=== PATIENT | female | born 1965 | race Hispanic/Latino ===

== ENCOUNTER 2021-03-05 13:22 | Inpatient (IN) | payer MEDICARE ==
[~2021-03-05] VITALS: Ht 160 cm; Wt 200.5 kg
[2021-03-05 14:31] LABS: APPEARANCE,URINE Clear (CLEAR); BILIRUBIN,URINE Negative (NEGATIVE); COLOR,URINE Yellow (YELLOW); GLUCOSE, URINE (UA) Negative (NEGATIVE); KETONES,URINE Negative (NEGATIVE); LEUKOCYTE ESTERASE ,URINE Large (NEGATIVE); NITRATE,URINE Positive (NEGATIVE); OCCULT BLOOD,URINE Large (NEGATIVE); PH,URINE 6.5 (5.0-8.0); PROTEIN,URINE POS 1+ mg/dL (NEGATIVE); UROBILINOGEN,URINE 0.2 mg/dL (0.2-1.0)
[2021-03-05 14:46] LABS: BACTERIA,URINE Moderate /HPF (None Seen); MUCUS,URINE Few LPF (None Seen); SQUAMOUS EPITHELIAL CELL,UR Few /HPF (0-2)
[2021-03-05 14:51] LABS: BASOPHILS % (AUTO) 0.7 % (0.0-5.0); EOSINOPHILS % (AUTO) 2.1 % (0.0-8.0); HEMATOCRIT 28.6 % (36-48); LYMPHOCYTES % (AUTO) 16.9 % (21.0-51.0); MEAN CORPUSCULAR HEMOGLOBIN 29.2 pg (27.0-33.0); MEAN CORPUSCULAR HGB CONC 30.4 g/dL (32.0-36.0); MONOCYTES % (AUTO) 4.1 % (3.0-13.0); NEUTROPHILS % (AUTO) 75.9 % (40.0-77.0); PLATELET COUNT (AUTO) 273 K/uL (130-400); RED BLOOD CELL COUNT(AUTO) 2.98 MIL/uL (4.00-5.50); RED CELL DISTRIBUTION WIDTH 15.4 % (11.0-15.5); WHITE BLOOD COUNT (AUTO) 11.7 K/uL (4.8-10.8)
[2021-03-05 15:05] LABS: ALBUMIN 2.9 g/dL (3.5-5.0); BILIRUBIN,TOTAL 0.1 mg/dL (0.2-1.0); CREATININE 1.8 mg/dL (0.5-1.5); TOTAL PROTEIN, SERUM 7.8 g/dL (6.0-8.3)
[2021-03-05 15:10] LABS: POTASSIUM 6.8 mmol/L (3.5-5.1)
[2021-03-05] MEDS ORDERED: LEVOFLOXACIN 500 MG/D5W 100 ML 100 ML IV SCH (15:30)
[2021-03-05] MEDS ORDERED: SODIUM BICARB 8.4% 50ML SYRINGE IVP ONE (17:00)
[2021-03-05] MEDS ORDERED: DEXTROSE 50%-WATER 25 GM/50 ML VIAL IV ONE (17:00)
[2021-03-05] MEDS ORDERED: INSULIN HUMULIN R 100 UNIT/ML 3ML IV ONE (17:00)
[2021-03-05] MEDS ORDERED: CALCIUM GLUC 1GM 1 GM in 0.9%NACL 100ML 100 ML IV ONE (17:00)
[2021-03-05] MEDS ORDERED: DEXTROSE 50%-WATER 50 ML DISP.SYRIN IV ONE (17:00)
[2021-03-05] MEDS ORDERED: SODIUM BICARB 50MEQ 50ML VIAL 50 ML ONE (17:12)
[2021-03-05] MEDS ORDERED: 0.9%NACL 100ML 100 ML ONE (17:14)
[2021-03-05] MEDS ORDERED: CALCIUM GLUC 1GM/10ML VIAL IV ONE (17:14)
[2021-03-05 20:54] LABS: ABG BASE EXCESS -13.5 mmol/L (-2.0-3.0); ABG OXYGEN SATURATION 96.7 % (95.0-99.0); ABG PCO2 33 mmHg (32-45)
[2021-03-05] MEDS ORDERED: ONDANSETRON 4MG INJ IV PRN (21:30)
[2021-03-05] MEDS ORDERED: LACTATED RINGERS 1000ML 1,047 ML IV ONE (21:30)
[2021-03-05] MEDS ORDERED: ACETAMINOPHEN 325 MG TAB PO PRN (21:30)
[2021-03-05] MEDS ORDERED: ALBUTEROL INHALER 90MCG/INH IH PRN (22:00)
[2021-03-05] MEDS ORDERED: KAYEXALATE 15GM/60ML PO NR (22:00)
[2021-03-05] MEDS ORDERED: 0.9%NACL 50ML 50 ML IV ONE (22:07)
[2021-03-05] MEDS: ZOSYN 3.375GM+NS 50ML 50 ML IV SCH (23:19)
[2021-03-06 01:35] LABS: CREATININE 1.6 mg/dL (0.5-1.5); POTASSIUM 5.8 mmol/L (3.5-5.1)
[2021-03-06 05:31] LABS: BASOPHILS % (AUTO) 0.8 % (0.0-5.0); EOSINOPHILS % (AUTO) 3.9 % (0.0-8.0); HEMATOCRIT 29.7 % (36-48); LYMPHOCYTES % (AUTO) 21.7 % (21.0-51.0); MEAN CORPUSCULAR HEMOGLOBIN 28.2 pg (27.0-33.0); MEAN CORPUSCULAR HGB CONC 29.6 g/dL (32.0-36.0); MEAN CORPUSCULAR VOLUME 95.2 fL (79-99); MONOCYTES % (AUTO) 5.8 % (3.0-13.0); NEUTROPHILS % (AUTO) 67.4 % (40.0-77.0); PLATELET COUNT (AUTO) 269 K/uL (130-400); RED BLOOD CELL COUNT(AUTO) 3.12 MIL/uL (4.00-5.50); RED CELL DISTRIBUTION WIDTH 15.3 % (11.0-15.5); WHITE BLOOD COUNT (AUTO) 8.6 K/uL (4.8-10.8)
[2021-03-06 05:45] LABS: HEMOGLOBIN A1C 5.9 % (4.0-6.0)
[2021-03-06 06:02] LABS: CREATININE 1.7 mg/dL (0.5-1.5); MAGNESIUM 1.5 mg/dL (1.80-2.40); PHOSPHORUS 4.2 mg/dL (2.5-4.9); POTASSIUM 5.9 mmol/L (3.5-5.1); THYROID STIMULATING HORMONE 3.75 uIU/mL (0.36-3.74)
[2021-03-06] MEDS: LEVOTHYROXINE 100 MCG TABLET PO SCH (06:18)
[2021-03-06] MEDS ORDERED: SODIUM ZIRCONIUM CYCLOSILICATE 5 GM POWD.PACK PO SCH (07:00)
[2021-03-06] MEDS ORDERED: MAGNESIUM 2GM PREMIX 50ML 50 ML IV SCH (07:00)
[2021-03-06] MEDS: INSULIN HUMULIN R 100 UNIT/ML 3ML SQ SCH ×4 (07:30→21:00)
[2021-03-06] MEDS ORDERED: SODIUM BICARBONATE 650 MG TAB PO PRN (09:00)
[2021-03-06] MEDS ORDERED: NA ZIRCON CYCLOSIL(LOKELMA 10GM) PO SCH ×2 (09:00→19:00)
[2021-03-06] MEDS: HEPARIN 5,000 UNIT VIAL SQ SCH ×2 (09:45→22:04)
[2021-03-06] MEDS: SODIUM BICARBONATE 650 MG TAB PO SCH ×2 (09:45→21:59)
[2021-03-06] MEDS: ZOSYN 3.375GM+NS 50ML 50 ML IV SCH ×2 (09:45→21:59)
[2021-03-06] MEDS ORDERED: 0.9%NACL 100ML 100 ML ONE (10:30)
[2021-03-06] MEDS: FAMOTIDINE 20MG TAB PO SCH (10:59)
[2021-03-06 15:09] LABS: CREATININE 1.4 mg/dL (0.5-1.5)
[2021-03-06 17:53] LABS: CREATININE 1.6 mg/dL (0.5-1.5); POTASSIUM 5.4 mmol/L (3.5-5.1)
[2021-03-06 18:53] VITALS: BP 112/61
[2021-03-06] MEDS: ATORVASTATIN 20 MG TABLET PO SCH (21:59)
[2021-03-07] VITALS: BP 105/60
[2021-03-07 03:55] LABS: BASOPHILS % (AUTO) 0.6 % (0.0-5.0); EOSINOPHILS % (AUTO) 2.2 % (0.0-8.0); HEMATOCRIT 27.4 % (36-48); LYMPHOCYTES % (AUTO) 17.9 % (21.0-51.0); MEAN CORPUSCULAR HEMOGLOBIN 28.7 pg (27.0-33.0); MEAN CORPUSCULAR HGB CONC 30.3 g/dL (32.0-36.0); MEAN CORPUSCULAR VOLUME 94.8 fL (79-99); NEUTROPHILS % (AUTO) 72.9 % (40.0-77.0); PLATELET COUNT (AUTO) 254 K/uL (130-400); RED BLOOD CELL COUNT(AUTO) 2.89 MIL/uL (4.00-5.50); RED CELL DISTRIBUTION WIDTH 15.2 % (11.0-15.5)
[2021-03-07 04:00] VITALS: BP 112/69
[2021-03-07 04:18] LABS: % IRON SATURATION 24.5 % (22-44)
[2021-03-07] MEDS: LEVOTHYROXINE 100 MCG TABLET PO SCH (06:14)
[2021-03-07 06:25] LABS: CREATININE 1.5 mg/dL (0.5-1.5); POTASSIUM 4.8 mmol/L (3.5-5.1)
[2021-03-07] MEDS: INSULIN HUMULIN R 100 UNIT/ML 3ML SQ SCH ×4 (06:48→21:59)
[2021-03-07 07:35] VITALS: BP 121/58
[2021-03-07] MEDS ORDERED: COMPOUND IV MISC 1 EACH IVSOLN MISC PRN (09:30)
[2021-03-07] MEDS: ZOSYN 3.375GM+NS 50ML 50 ML IV SCH ×2 (10:25→21:47)
[2021-03-07] MEDS: SODIUM BICARBONATE 650 MG TAB PO SCH ×2 (10:25→21:46)
[2021-03-07] MEDS: FAMOTIDINE 20MG TAB PO SCH (10:25)
[2021-03-07] MEDS: HEPARIN 5,000 UNIT VIAL SQ SCH ×3 (10:36→22:00)
[2021-03-07 11:50] VITALS: BP 118/61
[2021-03-07] MEDS: IRON SUCROSE COMPLEX 100 MG in 0.9%NACL 50ML 50 ML IV SCH (14:18)
[2021-03-07 15:45] VITALS: BP 123/56
[2021-03-07 20:16] VITALS: BP 128/64
[2021-03-07] MEDS ORDERED: FERR-72 PO (21:32)
[2021-03-07] MEDS ORDERED: NYSTPW TP (21:32)
[2021-03-07] MEDS ORDERED: TRAM50TA4 PO (21:32)
[2021-03-07] MEDS ORDERED: INSU200I4 SQ (21:45)
[2021-03-07] MEDS ORDERED: LEVO100 PO (21:45)
[2021-03-07] MEDS ORDERED: GABA600T10 PO (21:45)
[2021-03-07] MEDS ORDERED: LEVA15HF3 IH (21:45)
[2021-03-07] MEDS: ATORVASTATIN 20 MG TABLET PO SCH (21:46)
[2021-03-07] MEDS ORDERED: DULO20CA18 PO (21:48)
[2021-03-07] MEDS ORDERED: ERGO500093 PO (21:48)
[2021-03-07] MEDS ORDERED: LISI5TAB21 PO (21:48)
[2021-03-07] MEDS ORDERED: DULO60CA64 PO (21:52)
[2021-03-07] MEDS ORDERED: PANT20TA18 PO (21:52)
[2021-03-07] MEDS ORDERED: ONDA-104 PO (21:52)
[2021-03-07] MEDS ORDERED: ATOR20TA65 PO (21:52)
[2021-03-07] MEDS ORDERED: FERR325T29 PO (21:54)
[2021-03-07] MEDS ORDERED: MULT-1192 PO (21:59)
[2021-03-07] MEDS ORDERED: VIT B1 PO (21:59)
[2021-03-07] MEDS ORDERED: VIT B12 PO (21:59)
[2021-03-08 00:20] VITALS: BP 127/73
[2021-03-08 03:23] VITALS: BP 107/61
[2021-03-08 04:19] LABS: BASOPHILS % (AUTO) 0.6 % (0.0-5.0); EOSINOPHILS % (AUTO) 2.2 % (0.0-8.0); HEMATOCRIT 26.8 % (36-48); LYMPHOCYTES % (AUTO) 18.8 % (21.0-51.0); MEAN CORPUSCULAR HEMOGLOBIN 28.5 pg (27.0-33.0); MEAN CORPUSCULAR HGB CONC 30.6 g/dL (32.0-36.0); MEAN CORPUSCULAR VOLUME 93.1 fL (79-99); MONOCYTES % (AUTO) 6.5 % (3.0-13.0); NEUTROPHILS % (AUTO) 71.2 % (40.0-77.0); PLATELET COUNT (AUTO) 270 K/uL (130-400); RED BLOOD CELL COUNT(AUTO) 2.88 MIL/uL (4.00-5.50); RED CELL DISTRIBUTION WIDTH 14.9 % (11.0-15.5); WHITE BLOOD COUNT (AUTO) 10.2 K/uL (4.8-10.8)
[2021-03-08 05:57] LABS: CREATININE 1.7 mg/dL (0.5-1.5); MAGNESIUM 1.7 mg/dL (1.80-2.40); POTASSIUM 4.3 mmol/L (3.5-5.1)
[2021-03-08] MEDS: INSULIN HUMULIN R 100 UNIT/ML 3ML SQ SCH ×3 (06:12→16:30)
[2021-03-08] MEDS: LEVOTHYROXINE 100 MCG TABLET PO SCH (06:28)
[2021-03-08 07:35] VITALS: BP 145/77
[2021-03-08] MEDS: FAMOTIDINE 20MG TAB PO SCH (08:41)
[2021-03-08] MEDS: SODIUM BICARBONATE 650 MG TAB PO SCH (08:41)
[2021-03-08] MEDS: HEPARIN 5,000 UNIT VIAL SQ SCH (08:56)
[2021-03-08] MEDS ORDERED: TRAMADOL HCL 50 MG TABLET PO PRN (09:00)
[2021-03-08] MEDS ORDERED: NYSTATIN 15 GM POWDER TP PRN (09:00)
[2021-03-08] MEDS ORDERED: **HM** DULOXETINE 20MG PO SCH (09:00)
[2021-03-08] MEDS ORDERED: PANTOPRAZOLE 40 MG TAB DR PO SCH (09:00)
[2021-03-08] MEDS ORDERED: DULOXETINE HCL 30 MG CAP PO SCH (09:00)
[2021-03-08] MEDS ORDERED: MULTIVITAMIN TABLET PO SCH (09:00)
[2021-03-08] MEDS ORDERED: LEVALBUTEROL IH PRN (09:00)
[2021-03-08] MEDS ORDERED: LEVOFLOXACIN 500 MG TABLET PO SCH (09:00)
[2021-03-08] MEDS ORDERED: FERROUS SULFATE 325 MG TABLET.DR PO SCH (09:00)
[2021-03-08 11:10] VITALS: BP 125/68
[2021-03-08] MEDS: IRON SUCROSE COMPLEX 100 MG in 0.9%NACL 50ML 50 ML IV SCH (12:00)
[2021-03-08] MEDS ORDERED: LEVO500T90 PO (14:20)
[2021-03-08] MEDS ORDERED: SODI650T PO (14:26)
[2021-03-08] MEDS ORDERED: FLUCONAZOLE 100 MG TAB PO SCH (14:30)
[2021-03-08 15:25] VITALS: BP 123/73
[2021-03-08] MEDS ORDERED: ATORVASTATIN 20 MG TABLET PO SCH (21:00)
== END 2021-03-08 17:25 | disposition home or self-care (01) | DRG 690 ==
LOC: EDH 13:22 → EDHIP 21:14 → 4BH 03-06 18:14
PROVIDERS: ADMIT Internal Medicine; ATTEND Internal Medicine
PROC: 5A09357 Assistance with Respiratory Ventilation, Less than 24 Consecutive Hours, Continuous Positive Airway Pressure (ICD-10-PCS; principal; 2021-03-07)
PROC: 5A09357 Assistance with Respiratory Ventilation, Less than 24 Consecutive Hours, Continuous Positive Airway Pressure (ICD-10-PCS; 2021-03-08)
DX: N30.90 Cystitis, unspecified without hematuria (principal); N12 Tubulo-interstitial nephritis, not specified as acute or chronic; N17.9 Acute kidney failure, unspecified; E87.5 Hyperkalemia; E11.9 Type 2 diabetes mellitus without complications; I10 Essential (primary) hypertension; J44.9 Chronic obstructive pulmonary disease, unspecified; M19.90 Unspecified osteoarthritis, unspecified site; E03.9 Hypothyroidism, unspecified; E78.5 Hyperlipidemia, unspecified; D64.9 Anemia, unspecified; Z90.49 Acquired absence of other specified parts of digestive tract; Z88.8 Allergy status to other drugs, medicaments and biological substances; Z74.01 Bed confinement status; Z98.84 Bariatric surgery status; Z87.440 Personal history of urinary (tract) infections; Z82.0 Family history of epilepsy and other diseases of the nervous system; Z82.5 Family history of asthma and other chronic lower respiratory diseases; Z83.3 Family history of diabetes mellitus; Z82.61 Family history of arthritis; Z82.49 Family history of ischemic heart disease and other diseases of the circulatory system
CPT/HCPCS: 36415; 36600; 71045; 76857; 80048; 80053; 81001; 82803; 82948; 83036; 83540; 83550; 83605; 83735; 84100; 84145; 84443; 84484; 85025; 87040; 87077; 87088; 87186; 93005; 94660; G0378; J0610; J1644; J1756; J1815; J1956; J2543; J3475; J3490; J7070